=== PATIENT | male | born 1980 | race Caucasian/White ===

== ENCOUNTER 2019-11-29 20:04 | Emergency (ER) | payer SELFPAY ==
[2019-11-29] MEDS ORDERED: Morphine 4 MG/ML VIAL ONE (20:28)
[2019-11-29] MEDS ORDERED: Ondansetron PF 4 MG/2 ML Vial ONE ×2 (20:29→21:01)
[2019-11-29] MEDS ORDERED: Ketorolac Tromethamine 30 MG/ML VIAL ONE (20:29)
[2019-11-29 21:29] LABS: #Lymphocytes 1.2 thou/uL (1.20-3.40); #Monocytes 0.5 thou/uL (0.11-0.59); #Neutrophils 4.2 thou/uL (1.40-6.50); %Basophils 0.6 % (0.0-1.0); %Eosinophils 0.6 % (0.0-10.0); %Lymphocytes 19.5 % (21.0-51.0); %Monocytes 8.4 % (0.0-10.0); %Neutrophils 70.9 % (42.0-75.0); Hemoglobin 15.3 g/dL (14.0-18.0); Mean Corpuscular HGB CONC 33.6 g/dL (32.0-36.0); Mean Corpuscular Hemoglobin 33.5 pg (27.0-31.0); Mean Corpuscular Volume 99.8 fL (78.0-98.0); Mean Platelet Volume 7.6 fL (7.4-10.4); Platelet Count 234 thou/uL (130-400); RBC Distribution Width 11.8 % (11.5-14.5); Red Blood Cell (RBC) Count 4.57 mill/uL (4.70-6.10)
[2019-11-29 21:44] LABS: ALT (SGPT) 46 U/L (8-55); AST (SGOT) 40 U/L (5-34); Albumin 4.4 g/dL (3.5-5.0); Alkaline Phosphatase 74 U/L (40-110); Anion Gap 16 mmol/L (10-20); BUN (Urea Nitrogen) 12 mg/dL (8.9-20.6); Bilirubin, Total 0.6 mg/dL (0.2-1.2); Calc. Creatinine Clearance 0 mL/min (70-130); Calcium 8.9 mg/dL (7.8-10.44); Carbon Dioxide 20 mmol/L (22-29); Chloride 106 mmol/L (98-107); Estimated GFR-MDRD Greater than 90; Glucose 92 mg/dL (70-105); Lipase 12 U/L (8-78); Potassium 3.8 mmol/L (3.5-5.1); Protein, Total 7.4 g/dL (6.0-8.3); Sodium 138 mmol/L (136-145)
[2019-11-29 22:05] LABS: Bilirubin Negative (Negative); Blood, Urine 2+ (Negative); Clarity Clear (Clear); Glucose, Urine (Dipstick) Normal (Negative); Leukocyte 250 Leu/uL (Negative); Nitrite Negative (Negative); Protein, Urine (Dipstick) 20 mg/dL (Neg-Trace); RBC/HPF 21-50 HPF (0-3); Squamous Epithelial 0-3 HPF (0-3); Urobilinogen Normal mg/dL (Less than 2)
[2019-11-29 22:16] LABS: Bacteria/HPF None Seen HPF (None Seen)
--- NOTE | 2019-11-30 16:10 | EKG ---
Test Reason : Blood Pressure : / mmHG Vent. Rate : 131 BPM Atrial Rate : 131 BPM P-R Int : 134 ms QRS Dur : 090 ms QT Int : 296 ms P-R-T Axes : 066 -18 -04 degrees QTc Int : 437 ms Sinus tachycardia Possible Left atrial enlargement Left ventricular hypertrophy Cannot rule out Septal infarct , age undetermined Abnormal ECG Confirmed by BRANDON MCCAIN DO ([id number]), rewrite editor CUATE COTTRELL ([id number] on 11/30/2019 4:09:18 PM Referred By: Confirmed By:BRANDON MCCAIN DO
== END 2019-11-29 23:53 | disposition left against medical advice (07) ==
LOC: ERS 20:04
DX: R10.31 Right lower quadrant pain (principal); F17.210 Nicotine dependence, cigarettes, uncomplicated
CPT/HCPCS: 36415; 80053; 81003; 81015; 83690; 85025; 93005; 96361; 96374; 96375; 96376; J1885; J2270; J2405

== ENCOUNTER 2019-11-30 02:29 | Emergency (ER) | payer SELFPAY ==
[2019-11-30] MEDS ORDERED: risperiDONE 1 MG TAB ONE (02:57)
[2019-11-30 03:09] LABS: #Basophils 0.1 thou/uL (0.0-0.2); #Eosinphils 0.1 thou/uL (0.0-0.7); #Lymphocytes 1.4 thou/uL (1.20-3.40); #Monocytes 0.9 thou/uL (0.11-0.59); #Neutrophils 6.1 thou/uL (1.40-6.50); %Basophils 0.7 % (0.0-1.0); %Eosinophils 1.2 % (0.0-10.0); %Lymphocytes 16.4 % (21.0-51.0); %Monocytes 10.9 % (0.0-10.0); %Neutrophils 70.8 % (42.0-75.0); Hemoglobin 14.1 g/dL (14.0-18.0); Mean Corpuscular HGB CONC 34.9 g/dL (32.0-36.0); Mean Corpuscular Hemoglobin 34.9 pg (27.0-31.0); Mean Corpuscular Volume 99.9 fL (78.0-98.0); Mean Platelet Volume 7.1 fL (7.4-10.4); Platelet Count 209 thou/uL (130-400); RBC Distribution Width 11.9 % (11.5-14.5); Red Blood Cell (RBC) Count 4.05 mill/uL (4.70-6.10); White Blood Cell (WBC) Count 8.6 thou/uL (4.8-10.8)
[2019-11-30 03:30] LABS: Bacteria/HPF None Seen HPF (None Seen); Bilirubin Negative (Negative); Blood, Urine Trace (Negative); Clarity Clear (Clear); Glucose, Urine (Dipstick) Normal (Negative); Leukocyte 25 Leu/uL (Negative); Nitrite Negative (Negative); Protein, Urine (Dipstick) Negative (Neg-Trace); RBC/HPF 0-3 HPF (0-3); Squamous Epithelial 0-3 HPF (0-3); Urobilinogen Normal mg/dL (Less than 2); WBC/HPF 0-3 HPF (0-3)
[2019-11-30 03:30] LABS: Acetaminophen Less than 6.0 mcg/mL (10.0-30.0); Alcohol Less than 10 mg/dL (Less than 10); CK (CPK) 438 U/L (30-200); Salicylate Less than 8.0 mg/dL (15.0-30.0)
[2019-11-30 03:31] LABS: ALT (SGPT) 41 U/L (8-55); AST (SGOT) 39 U/L (5-34); Albumin 4.2 g/dL (3.5-5.0); Alkaline Phosphatase 67 U/L (40-110); Anion Gap 15 mmol/L (10-20); BUN (Urea Nitrogen) 14 mg/dL (8.9-20.6); Bilirubin, Total 0.7 mg/dL (0.2-1.2); Calc. Creatinine Clearance 0 mL/min (70-130); Calcium 9.1 mg/dL (7.8-10.44); Carbon Dioxide 21 mmol/L (22-29); Chloride 105 mmol/L (98-107); Estimated GFR-MDRD Greater than 90; Globulin 2.8 g/dL (2.4-3.5); Glucose 77 mg/dL (70-105); Potassium 3.9 mmol/L (3.5-5.1); Sodium 137 mmol/L (136-145)
[2019-11-30 03:31] LABS: Amphetamine Not Detected (NotDetected); Barbiturates Screen Detected (NotDetected); Benzodiazepine Screen Detected (NotDetected); Cocaine Metabolite Screen Not Detected (NotDetected); Medtox Control Line Valid? VALID (VALID); Medtox Reader # READER 4; Methadone Not Detected (NotDetected); Methamphetamine Not Detected (NotDetected); Opiate Screen Detected (NotDetected); Oxycodone Screen Not Detected (NotDetected); Phencyclidine (PCP) Not Detected (NotDetected); THC/Cannabinoid Screen Not Detected (NotDetected); Tricyclic Screen Not Detected (NotDetected)
[2019-11-30] MEDS ORDERED: Ketorolac Tromethamine 30 MG/ML VIAL ONE (16:27)
[2019-11-30] MEDS ORDERED: Lorazepam 1 MG TAB ONE (16:51)
[2019-11-30] MEDS ORDERED: Acetaminophen 500 MG TAB ONE (17:11)
[2019-11-30] MEDS ORDERED: Lorazepam 2 MG/ML VIAL ONE (17:19)
[2019-11-30] MEDS ORDERED: Haloperidol Lactate 5 MG/ML VIAL ONE ×2 (17:20→17:36)
[2019-11-30] MEDS ORDERED: diphenhydrAMINE 50 MG/ML VIAL ONE ×2 (17:20→17:37)
--- NOTE | 2019-11-30 17:29 | CT ---
Exam: Abdomen CT without contrast Pelvic CT without contrast HISTORY: Tachycardia. Abdominal pain. Past medical history of lithotripsy. COMPARISON: None FINDINGS: Abdomen CT: Lung bases:Minimal dependent atelectatic change Heart size: Normal heart size. No significant pericardial fluid Aorta: Normal caliber. No periaortic fat stranding Solid organs: Limited evaluation by the lack of IV contrast. Grossly no solid organ abnormality Lymph nodes: No gastrohepatic, retrocrural or periportal lymphadenopathy Gallbladder: Contracted Mesentery: No mass, lymphadenopathy, free air or free fluid. Evidence of previous anterior abdominal hernia repair. No evidence of bowel herniation or herniation of the mesenteric fat. Kidneys: Punctate nonobstructing 1 to 2 mm calculi in the left intrarenal collecting the stomach. Bruno aterally no hydronephrosis or perinephric fat stranding. Bilateral ureters have a normal caliber. No hydroureter, periureteral fat stranding or lithiasis. Alimentary canal: Limited evaluation by the lack of oral contrast. No evidence of a small bowel or co lonic obstruction. Normal caliber appendix. Scattered fecal material in a decompressed colon. CT PELVIS: No mass, adenopathy, free air or free fluid. Urinary bladder: No bladder calculi. Osseous structures: No lytic or blastic lesions IMPRESSION: 1. Nonobstructing calculi in the left intrarenal collecting system. 2. Bilaterally no obstructive uropathy. 3. Normal caliber appendix.
== END 2019-11-30 23:15 ==
LOC: ERS 02:29
DX: F23 Brief psychotic disorder (principal); F31.9 Bipolar disorder, unspecified; F19.10 Other psychoactive substance abuse, uncomplicated; R45.851 Suicidal ideations; R10.9 Unspecified abdominal pain; F17.210 Nicotine dependence, cigarettes, uncomplicated; Z87.442 Personal history of urinary calculi; Z79.01 Long term (current) use of anticoagulants; Z79.899 Other long term (current) drug therapy
CPT/HCPCS: 36415; 74176; 80053; 80306; 80307; 81003; 82550; 84443; 85025; 96372; J1200; J1630; J1885; J2060